=== PATIENT | male | born 1990 | race Caucasian/White ===

== ENCOUNTER 2023-04-03 12:43 | Inpatient (IN) | payer OTHER ==
[~2023-04-03] VITALS: Ht 188 cm; Wt 112.9 kg
[2023-04-03 12:43] VITALS: BP_SYST 155; PULSE 106; RESP 20; TEMP 100.2; O2SAT 95
[2023-04-03 14:01] LABS: BILIRUBIN,URINE 1+ (NEGATIVE); COLOR,URINE YELLOW (YELLOW); GLUCOSE,URINE NEGATIVE (NEGATIVE); KETONES,URINE 2+ (NEGATIVE); LEUKOCYTE ESTERASE ,URINE NEGATIVE (NEGATIVE); NITRITE, URINE NEGATIVE (NEGATIVE); PH,URINE 5.5 (5.0-8.0); PROTEIN URINE 1+ (NEGATIVE); UROBILINOGEN,URINE 0.2 (0.2-1.0)
[2023-04-03 14:02] LABS: BLOOD, URINE TRACE (NEGATIVE); CLARITY/URINE HAZY (CLEAR)
[2023-04-03 14:08] LABS: BASOPHILS % (AUTO) 0.1 % (0.0-2.0); EOSINOPHILS % (AUTO) 0.1 % (0.0-4.0); HEMATOCRIT 42.1 % (36-54); HEMOGLOBIN 13.9 g/dL (14.0-18.0); LYMPHOCYTES # (AUTO) 1.3 K/uL (1.0-5.5); LYMPHOCYTES % (AUTO) 7.3 % (20.5-51.5); MEAN CORPUSCULAR HEMOGLOBIN 28 pg (27-31); MEAN CORPUSCULAR HGB CONC 33 % (32-36); MEAN CORPUSCULAR VOLUME 83 fL (79.0-98.0); MONOCYTES # (AUTO) 1.1 K/uL (0.0-1.0); MONOCYTES % (AUTO) 6.3 % (1.7-9.3); NEUTROPHILS # (AUTO) 15.5 K/uL (1.8-7.7); NEUTROPHILS % (AUTO) 86.2 % (40.0-70.0); PLATELET COUNT (AUTO) 281 K/uL (130-430); RED BLOOD CELL COUNT(AUTO) 5.05 MIL/uL (4.2-6.2); RED CELL DISTRIBUTION WIDTH 13.1 % (9.0-15.0)
[2023-04-03 14:10] LABS: BACTERIA,URINE FEW /HPF (None Seen); MUCUS,URINE 1+ /LPF (None Seen)
[2023-04-03 14:11] LABS: URINE AMORPHOUS URATE 1+ /HPF (None Seen)
[2023-04-03 14:14] LABS: ANION GAP 8 (5-15); CALCIUM 9.7 mg/dL (8.4-11.0); CARBON DIOXIDE 26 mmol/L (23-29); CHLORIDE 101 mmol/L (98-107); CREATININE 1.37 mg/dL (0.55-1.30); GFR AFRICAN AMERICAN 76 mL/min (>90); GFR NON AFRICAN-AMERICAN 63 mL/min (>90); GLUCOSE 136 mg/dL (74-106); POTASSIUM 3.6 mmol/L (3.5-5.1); SODIUM SERUM 135 mmol/L (136-145); UREA NITROGEN, BLOOD 15 mg/dL (8-21)
[2023-04-03 14:18] LABS: INR 1.1 (0.80-1.20); PROTHROMBIN TIME 10.9 SECS (9.5-12.5)
[2023-04-03 14:38] LABS: ACETONE, SERUM NEGATIVE (NEGATIVE)
[2023-04-03] MEDS ORDERED: NACL 0.9% 1,000 ML IV ONE ×2 (14:45→15:30)
[2023-04-03] MEDS ORDERED: PIPERACILLIN/TAZO 3.375 GM in NS 50 ML IV ONE (14:45)
[2023-04-03] MEDS ORDERED: metroNIDAZOLE 500 mg/NS 100 ML IV ONE (14:45)
[2023-04-03 14:47] LABS: ALANINE AMINOTRANSFERASE 34 U/L (12-78); ALBUMIN 4.2 g/dL (3.4-4.8); AMYLASE 25 U/L (0-100); ASPARTATE AMINOTRANSFERASE 19 U/L (10-37); LIPASE 20 U/L (16-77); TOTAL BILIRUBIN 0.8 mg/dL (0.0-1.0); TOTAL PROTEIN, SERUM 7.5 g/dL (6.4-8.3)
[2023-04-03] MEDS ORDERED: MORPHINE 4 MG INJ. 4 MG/ML VIAL IVP ONE (15:00)
[2023-04-03] MEDS ORDERED: ONDANSETRON HCL 4 MG/2 ML VIAL IVP ONE (15:00)
[2023-04-03] MEDS ORDERED: PIPERACILLIN/TAZOBACTAM 3.375 GM/VIAL (ZOSYN) IV ONE (15:18)
[2023-04-03] MEDS ORDERED: NACL 0.9% 1,000 ML IV SCH (15:30)
[2023-04-03] MEDS ORDERED: TEMAZEPAM 15 MG CAPSULE PO PRN (17:30)
[2023-04-03] MEDS ORDERED: ACETAMINOPHEN 325 MG TABLET PO PRN (17:30)
[2023-04-03] MEDS ORDERED: KETOROLAC TROMETHAMINE 15 MG VIAL IVP PRN (17:30)
[2023-04-03] MEDS ORDERED: ONDANSETRON HCL 4 MG/2 ML VIAL IVP PRN (17:30)
[2023-04-03] MEDS ORDERED: MORPHINE 4 MG INJ. 4 MG/ML VIAL IVP PRN (17:30)
[2023-04-03 18:21] VITALS: BP_SYST 122; PULSE 77; RESP 18; TEMP 99.7; O2SAT 100
[2023-04-03] MEDS: LR 1,000 ML IV SCH (18:48)
[2023-04-03] MEDS: metroNIDAZOLE 500 mg/NS 100 ML IV SCH (23:02)
[2023-04-04 00:10] VITALS: BP_SYST 113; PULSE 77; RESP 16; TEMP 98.9; O2SAT 96
[2023-04-04] MEDS: PIPERACILLIN/TAZO 3.375/DEX-IS 50 ML IV SCH ×4 (00:27→18:03)
[2023-04-04] MEDS: LR 1,000 ML IV SCH ×3 (04:46→18:04)
[2023-04-04 06:00] LABS: ALBUMIN 3.3 g/dL (3.4-4.8); CALCIUM 8.8 mg/dL (8.4-11.0); CREATININE 0.95 mg/dL (0.55-1.30); POTASSIUM 3.5 mmol/L (3.5-5.1); TOTAL BILIRUBIN 1.2 mg/dL (0.0-1.0); TOTAL PROTEIN, SERUM 6.3 g/dL (6.4-8.3)
[2023-04-04 06:43] LABS: BASOPHILS % (AUTO) 0.2 % (0.0-2.0); EOSINOPHILS % (AUTO) 0.2 % (0.0-4.0); HEMATOCRIT 39.9 % (36-54); HEMOGLOBIN 12.9 g/dL (14.0-18.0); LYMPHOCYTES # (AUTO) 1.9 K/uL (1.0-5.5); LYMPHOCYTES % (AUTO) 13.3 % (20.5-51.5); MEAN CORPUSCULAR HEMOGLOBIN 27 pg (27-31); MEAN CORPUSCULAR HGB CONC 32 % (32-36); MEAN CORPUSCULAR VOLUME 84 fL (79.0-98.0); MONOCYTES # (AUTO) 1.2 K/uL (0.0-1.0); MONOCYTES % (AUTO) 8.8 % (1.7-9.3); NEUTROPHILS # (AUTO) 10.9 K/uL (1.8-7.7); NEUTROPHILS % (AUTO) 77.5 % (40.0-70.0); PLATELET COUNT (AUTO) 216 K/uL (130-430); RED BLOOD CELL COUNT(AUTO) 4.76 MIL/uL (4.2-6.2); RED CELL DISTRIBUTION WIDTH 13.1 % (9.0-15.0); WHITE BLOOD COUNT (AUTO) 14.1 K/uL (4.8-10.8)
[2023-04-04] MEDS: metroNIDAZOLE 500 mg/NS 100 ML IV SCH ×3 (06:48→21:12)
[2023-04-04 08:00] VITALS: BP_SYST 104; TEMP 98.6; O2SAT 97
[2023-04-04 11:14] VITALS: BP_SYST 100; PULSE 75; RESP 18; TEMP 98.1; O2SAT 98
[2023-04-04 16:27] VITALS: BP_SYST 100; PULSE 71; RESP 19; TEMP 98; O2SAT 97
[2023-04-05] MEDS: PIPERACILLIN/TAZO 3.375/DEX-IS 50 ML IV SCH ×2 (00:04→05:08)
[2023-04-05 00:31] VITALS: BP_SYST 107; PULSE 66; RESP 17; TEMP 97.3; O2SAT 98
[2023-04-05 05:20] LABS: BASOPHILS % (AUTO) 0.2 % (0.0-2.0); EOSINOPHILS # (AUTO) 0.1 K/uL (0.0-0.4); EOSINOPHILS % (AUTO) 1.1 % (0.0-4.0); HEMATOCRIT 40.1 % (36-54); HEMOGLOBIN 13.3 g/dL (14.0-18.0); LYMPHOCYTES # (AUTO) 2.2 K/uL (1.0-5.5); LYMPHOCYTES % (AUTO) 20.4 % (20.5-51.5); MEAN CORPUSCULAR HEMOGLOBIN 28 pg (27-31); MEAN CORPUSCULAR HGB CONC 33 % (32-36); MEAN CORPUSCULAR VOLUME 84 fL (79.0-98.0); MONOCYTES # (AUTO) 1.1 K/uL (0.0-1.0); MONOCYTES % (AUTO) 10.6 % (1.7-9.3); NEUTROPHILS # (AUTO) 7.2 K/uL (1.8-7.7); NEUTROPHILS % (AUTO) 67.7 % (40.0-70.0); PLATELET COUNT (AUTO) 219 K/uL (130-430); RED CELL DISTRIBUTION WIDTH 13.1 % (9.0-15.0); WHITE BLOOD COUNT (AUTO) 10.6 K/uL (4.8-10.8)
[2023-04-05] MEDS: metroNIDAZOLE 500 mg/NS 100 ML IV SCH (05:47)
[2023-04-05] MEDS: LR 1,000 ML IV SCH (05:47)
[2023-04-05 05:58] LABS: ALBUMIN 3.2 g/dL (3.4-4.8); CALCIUM 9.1 mg/dL (8.4-11.0); CREATININE 0.95 mg/dL (0.55-1.30); POTASSIUM 3.3 mmol/L (3.5-5.1); TOTAL BILIRUBIN 0.6 mg/dL (0.0-1.0); TOTAL PROTEIN, SERUM 6.5 g/dL (6.4-8.3)
[2023-04-05 08:25] VITALS: BP_SYST 122; PULSE 67; RESP 18; TEMP 97.9; O2SAT 96; O2SAT 97
[2023-04-05] MEDS ORDERED: CIPR500T5 PO (10:55)
[2023-04-05] MEDS ORDERED: METR-154 PO (10:57)
[2023-04-05] MEDS ORDERED: LACT1CAP69 PO (10:58)
[2023-04-05] MEDS ORDERED: POTASSIUM CHLORIDE 20 MEQ TABLET.ER PO ONE (11:00)
[2023-04-05 11:37] VITALS: BP_SYST 106; PULSE 60; RESP 19; TEMP 97.6; O2SAT 96
== END 2023-04-05 12:40 | disposition home or self-care (01) | DRG 871 ==
LOC: SED 12:43 → SMU 15:23
PROVIDERS: ADMIT Internal Medicine; ATTEND Internal Medicine
DX: A41.9 Sepsis, unspecified organism (principal); N17.0 Acute kidney failure with tubular necrosis; K57.32 Diverticulitis of large intestine without perforation or abscess without bleeding; E66.9 Obesity, unspecified; K76.0 Fatty (change of) liver, not elsewhere classified; Z68.32 Body mass index [BMI] 32.0-32.9, adult
CPT/HCPCS: 36415; 76376; 80053; 81000; 81001; 81015; 82009; 82150; 83605; 83690; 85025; 85610-TC; 85730-TC; 87040; 87086; 99285; J2270; J2405; J2543; J3490